=== PATIENT | male | born 1950 | race Caucasian/White ===

== ENCOUNTER 2023-05-13 07:26 | Outpatient (OUT) | payer MEDICARE, SELFPAY ==
--- NOTE | 2023-05-13 08:34 | CA_ITS ---
Patient: MYRA THACKER Exam Date: 05/13/2023 : 1950 Gender:M Ordering : DR PARAS WILKINSON M.D. Admission #: [id number] Family : Order #: [id number] CLICK HERE TO VIEW EXAM ECHOCARDIOGRAM REPORT PROCEDURE: CA ECHO DOPPLER COMPLETE INDICATIONS: Pulmonary hypertension COMPARISON: None. DESCRIPTION: COMPLETE ECHOCARDIOGRAM Real-time transthoracic echocardiography with 2D, M-mode, spectral and color flow Doppler performed. QUALITY: Technical quality was good. LEFT VENTRICLE: Normal chamber size. Thickened septal wall. Global left ventricular systolic function is normal. LV EF: Visual estimation of left ventricular ejection fraction is 55-60% DIASTOLIC: Not adequately assessed due to heart rhythm. ATRIAL SEPTUM: LEFT ATRIUM: Normal chamber size. RIGHT ATRIUM: Moderate dilatation. RIGHT VENTRICLE: Mild dilatation. Mildly decreased right ventricular systolic function. TRICUSPID VALVE: Normal mobility and thickness. No stenosis with mild to moderate regurgitation. Moderate pulmonary hypertension. RVSP 53 mmHg MITRAL VALVE: Mildly thickened with normal mobility. No evidence of mitral valve stenosis. There is no mitral annular calcification. Mild mitral regurgitation. AORTIC VALVE: Normal trileaflet appearance. There is mild sclerosis. Normal leaflet mobility. No evidence of aortic valve stenosis. Mild aortic regurgitation. AORTIC ROOT: Normal diameter and appearance. PULMONIC VALVE: Normal thickness and mobility. No stenosis. Trivial regurgitation. PERICARDIUM: No evidence of pericardial effusion. IVC: Collapses with inspirations. Normal size. PLEURA: CONCLUSION: 1. Normal left ventricular systolic function. LV EF is 55-60%. 2. The right ventricle is mildly dilated with mildly reduced systolic function. 3. Mild to moderate tricuspid regurgitation. 4. Mild mitral and aortic regurgitation. 5. Moderately elevated right sided pressures. RVSP is 53 mmHg. 6. The patient appears to be in atrial flutter during the exam. Adult Echocardiography Procedure Report Left Ventricle LVEDD (3.7 - 5.6 cm): 3.33 cm LVESD (2.2 - 4.0 cm): 2.35 cm LVIVS thickness (0.6 - 1.2 cm): 1.20 cm LVPW thickness (0.5 - 1.0 cm): 0.75 cm e': 0.11 m/s E - e': 8.88 LVOT Max Gradient: 1.33 mm[Hg] LVOT Area (cm2): 0.58 m/s Peak Velocity (LVOT): 0.58 m/s Mean Velocity (LVOT): 0.48 m/s LVOT Diameter 1.78 cm Left Ventricular Ejection Fraction: 59.26 % Left Atrium LA Volume Index (2D A2C): 30.61 ml/m2 Left Atrium Systolic Dimension: 3.27 cm Mitral Valve MV E to A Ratio: 128.70 Mitral Valve A-Wave Peak Velocity: 0.01 m/s Mitral Valve E-Wave Peak Velocity: 0.97 m/s Right Ventricle RV Internal Diastolic Dimension: 4.16 cm Aorta AO Root Diam: 2.99 cm Ascending Ao Diam: 2.58 cm Aortic Valve AoV Area (Peak Fazal): 1.54 cm2, 1.61 cm2 AoV Area (VTI): 1.37 cm2, 1.53 cm2 Deceleration [place]: 1.96 m/s2 Pressure Half-Time: 637.95 ms Peak Velocity(Antegrade Flow): 0.89 m/s, 0.97 m/s Peak Gradient(Antegrade Flow): 3.17 mm[Hg], 3.77 mm[Hg] Mean Velocity(Antegrade Flow): 0.65 m/s, 0.72 m/s Mean Gradient(Antegrade Flow): 1.90 mm[Hg], 2.33 mm[Hg] Velocity Time Integral: 16.62 cm, 20.63 cm Tricuspid Valve Peak Velocity (Regurgitant Flow): 3.24 m/s, 3.52 m/s, 3.27 m/s Pulmonic Valve Peak Velocity: 0.78 m/s Peak Gradient: 2.66 mm[Hg], 2.21 mm[Hg] Right Atrium Right Atrium Systolic Pressure: 60.48 ml, 60.48 ml Dictated by: Paras Wilkinson M.D. on 05/13/2023 at 10:08 Approved by: Paras Wilkinson M.D. on 05/13/2023 at 10:14
== END 2023-05-13 07:27 | disposition home or self-care (01) ==
LOC: CARD 07:29
PROVIDERS: PCP Family Medicine; Visit Provider Internal Medicine Interventional Cardiology
DX: I27.20 Pulmonary hypertension, unspecified (principal); I08.3 Combined rheumatic disorders of mitral, aortic and tricuspid valves
CPT/HCPCS: 93306